=== PATIENT | female | born 1945 | race Caucasian/White ===

== ENCOUNTER 2023-03-04 19:42 | Emergency (ER) | payer MEDICARE, SELFPAY ==
--- NOTE | ~2023-03-04 | CT_ITS ---
EXAMINATION: Head CT, cervical spine CT and facial bone CT without contrast CLINICAL INFORMATION: Pain. Trauma. COMPARISON: None. TECHNIQUE: Axial images through the head, cervical spine and facial bones without IV contrast. Sagittal and coronal reconstructions on the technologist workstation were performed. This CT examination was performed using dose optimization techniques as appropriate, variously including the following: *Automated exposure control *Adjustment of mA and/or kV according to patient size (this includes techniques or standardized protocols for targeted exams where dose is matched to indication/reason for exam; i.e. extremities or head) *Use of iterative reconstruction technique DLP 122 3 mgy/cm FINDINGS: Head CT: There is no evidence of an extra-axial collection. There is no evidence of intra or extra-axial hemorrhage. The ventricles and extra-axial CSF spaces are slightly prominent suggestive of mild generalized atrophy. There is nonspecific periventricular white matter disease. No mass, mass effect or infarct. No skull fracture. There is soft tissue swelling over the right frontal bone. Facial bone CT: No facial bone fracture is seen. Paranasal sinuses are clear. The orbits are normal. Mastoid air cells and middle ears are clear. The temporomandibular joints are normal. Mild soft tissue swelling over the right face and frontal bone.. Cervical spine CT: Bone alignment is normal. No fracture or dislocation. Degenerative spondylosis from C3-C4-C5 to C6-C7. Degenerative disc disease at C5-C6 and C6-C7. Degenerative changes at the C1 dens articulation. Prevertebral soft tissues are normal. Bilateral upper lobe scarring, fibrosis bronchiectasis. Biapical pleural and parenchymal scarring and deeper small nodules, largest measuring 5 x 8 mm in the right upper lobe. Findings could be better assessed with chest CT scan. CT/CT cervical spine wo IV con IMPRESSION: Head CT: No acute findings. Mild generalized atrophy. Soft tissue swelling over the right frontal bone. Facial bone CT: No fracture or dislocation. Mild soft tissue swelling over the right face and frontal bone. Cervical spine CT: No fracture or dislocation. Degenerative changes. Scarring, fibrosis and bronchiectasis in both upper lobes. Small upper lobe pulmonary nodules. Findings could be better assessed with chest CT report
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
[2023-03-04 21:01] VITALS: BP 174/74; PULSE 66; RESP 20; TEMP 36.7; O2SAT 99; BMI 48.0
[2023-03-04 21:49] VITALS: BP 159/63; PULSE 72; RESP 16; TEMP 36.9; O2SAT 98
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
== END 2023-03-04 22:56 | disposition home or self-care (01) ==
PROVIDERS: Emergency Provider Emergency Medicine; PCP Internal Medicine
DX: S00.83XA Contusion of other part of head, initial encounter (principal); Y00.XXXA Assault by blunt object, initial encounter; Y93.9 Activity, unspecified; Y92.019 Unspecified place in single-family (private) house as the place of occurrence of the external cause; Y99.9 Unspecified external cause status; Z72.89 Other problems related to lifestyle; Z63.79 Other stressful life events affecting family and household
CPT/HCPCS: 70450; 70486; 72125; 73130; 99284

== ENCOUNTER 2023-04-13 16:40 | Emergency (ER) | payer MEDICARE, SELFPAY ==
--- NOTE | ~2023-04-13 | CT_ITS ---
EXAMINATION: CT HEAD WITHOUT CONTRAST CLINICAL INFORMATION: headache, right arm tingling/numbness COMPARISON: CT head without contrast 03/04/2023 TECHNIQUE: Contiguous axial imaging was performed from the skull base to vertex without intravenous administration of contrast. This CT examination was performed using dose optimization techniques as appropriate, variously including the following: *Automated exposure control *Adjustment of mA and/or kV according to patient size (this includes techniques or standardized protocols for targeted exams where dose is matched to indication/reason for exam; i.e. extremities or head) *Use of iterative reconstruction technique DLP: 669 mGy-cm FINDINGS: There are bilateral hemispheric subdural collections, both of which are new CT from 03/04/2023. The collection on the right measures up to 1.6 cm in maximal coronal thickness and the collection on the left measures up to 1.1 cm. Subdural collection on the right tracks along the anterior right falx. Both collections may contain blood products of varying ages with mixed isodense and layering hyperdense contents on the right and heterogeneous hyperdense and hypodense components on the left. There is local mass effect on the cerebral hemispheres with sulcal effacement on the right. No significant midline shift or downward herniation. No acute osseous or soft tissue abnormality. The mastoid air cells and visualized portions of the paranasal sinuses are well aerated. There is no evidence of acute territorial infarction. Travis to white matter differentiation is well preserved. No hydrocephalus. No significant volume loss. There is no abnormal attenuation within the brain parenchyma. CT/CT head/brain wo IV con IMPRESSION: Bilateral hemispheric subdural collections, right larger than left, which may contain blood products of varying ages, new compared to CT from 03/04/2023. There is local mass effect without significant midline shift or downward herniation. Above impression was communicated to Dr. Mccormack on 04/13/2023 at 6:09 PM
[2023-04-13 16:50] VITALS: BP 184/50; PULSE 73; RESP 16; TEMP 36.8; O2SAT 98; BMI 23.7
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
[2023-04-13 17:16] LABS: MANUAL DIFF FLAG NO
[2023-04-13 17:28] LABS: Basophils Absolute Auto 0.1 X10*3/uL (0.0-0.2); Basophils Percent Auto 0.8 % (0-2); Eosinophils Absolute Auto 0.2 X10*3/uL (0.0-0.4); Eosinophils Percent Auto 1.7 % (0-4); Hematocrit 42.1 % (37.0-47.0); Hemoglobin 14.1 g/dl (12.0-16.0); Imm Gran Abs Auto 0.03 X10*3/uL (0.00-0.03); Imm Gran Pct Auto 0.3 % (0.0-0.4); Lymphocytes Absolute Auto 1.9 X10*3/uL (1.2-4.9); Lymphocytes Percent Auto 20.2 % (20-40); Mean Corpuscular HGB Conc 33.5 g/dl (31.0-35.0); Mean Corpuscular Volume 86.6 fL (80.0-98.0); Mean Platelet Volume 10.8 fL (9.4-12.3); Monocytes Absolute Auto 0.5 X10*3/uL (0.1-1.2); Monocytes Percent Auto 5.6 % (2-11); Neutrophils Absolute Auto 6.6 x10*3/uL (2.0-8.3); Neutrophils Percent Auto 71.4 % (45-73); Platelet Count 291 X10*3/uL (160-400); Red Blood Count 4.86 X10*6/uL (4.20-5.50); Red Cell Distribution Width 11.7 % (11.0-16.0); White Blood Count 9.2 X10*3/uL (4.8-10.8)
[2023-04-13 17:34] LABS: Alanine Aminotransferase 13 U/L (0-31); Albumin Level 4.5 g/dL (3.5-5.0); Alkaline Phosphatase 83 U/L (39-117); Anion Gap 15 (12-20); Aspartate Amino Transferase 19 U/L (5-31); Bilirubin Direct 0.4 mg/dL (0.0-0.5); Bilirubin Total 0.9 mg/dL (0.0-1.0); Blood Urea Nitrogen 9 mg/dL (9-16); Calcium 9.7 mg/dL (8.4-10.2); Carbon Dioxide 24 mmol/L (22-29); Chloride 107 mmol/L (96-108); Creatinine Clr Calc Pharmacy 61.4; Estimated Glomerular Filt Rate > 60; Glucose Random 90 mg/dL (60-115); Potassium 3.7 mmol/L (3.3-5.1); Sodium 142 mmol/L (135-145); Total Protein 7.7 g/dL (6.5-8.0)
[2023-04-13 17:41] LABS: Troponin-I High Sensitivity < 2.7 ng/L (<3.5-17.0)
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
[2023-04-13 18:20] VITALS: BP 179/69; PULSE 71; RESP 11; O2SAT 99
--- NOTE | 2023-04-13 19:36 | PC.NURSE ---
PT A/OX4, VSS, +PERRLA, STATE 11/05 RAMIREZ, HAS BEEN CONSTANT FOR X35D PER PT. L SIDED FACIAL ASYMMETRY NOTED. AWAITING TRANSFER TO [facility].
[2023-04-13 20:48] VITALS: BP 170/62; PULSE 72; RESP 14; O2SAT 98
[2023-04-13] MEDS: Labetalol HCL 100 MG/20 ML VIAL 10 MG IVPUSH (20:56)
[2023-04-13 20:57] VITALS: BP 169/64; PULSE 66
[2023-04-13 21:02] VITALS: BP 166/62; PULSE 58
[2023-04-13 21:02] LABS: COVID-19 Test Negative (Negative); IDNOW Serial# 08D9AD1C
--- NOTE | 2023-04-13 22:55 | MHC.EDTECH ---
Call to [facility] transfer line @[phone] for a bed assignment. [facility] will call back with a room assignment
[2023-04-13 23:08] VITALS: BP 128/85; PULSE 57; RESP 11; O2SAT 99
--- NOTE | 2023-04-14 00:51 | MHC.EDTECH ---
[facility] patient placement called at [phone] Bed assignment was given Marcus 5 RM [id number] Nurse to Nurse [phone] DR. Tolentino
--- NOTE | 2023-04-14 00:56 | MHC.EDTECH ---
call out to jaren at [phone] to book transport for pt to [facility], estimated eta given was 0030
== END 2023-04-14 00:36 | disposition short-term general hospital (02) ==
PROVIDERS: Physician Assistant Medical; Emergency Provider Emergency Medicine Emergency Medical Services; PCP Internal Medicine
DX: S06.5XAA Traumatic subdural hemorrhage with loss of consciousness status unknown, initial encounter (principal); X58.XXXA Exposure to other specified factors, initial encounter; Y93.9 Activity, unspecified; Y92.9 Unspecified place or not applicable; Y99.9 Unspecified external cause status; R20.0 Anesthesia of skin; R51.9 Headache, unspecified; Z20.822 Contact with and (suspected) exposure to COVID-19
CPT/HCPCS: 36415; 70450; 80048; 80076; 84484; 85025; 87635; 96374; 99285

== ENCOUNTER 2023-05-20 16:14 | Emergency (ER) | payer MEDICARE, SELFPAY ==
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
--- NOTE | ~2023-05-20 | CT_ITS ---
EXAMINATION: CT HEAD WITHOUT CONTRAST CLINICAL INFORMATION: Slurred speech. COMPARISON: 04/13/2023. TECHNIQUE: Contiguous axial imaging was performed from the skull base to vertex without intravenous administration of contrast. This CT examination was performed using dose optimization techniques as appropriate, variously including the following: *Automated exposure control *Adjustment of mA and/or kV according to patient size (this includes techniques or standardized protocols for targeted exams where dose is matched to indication/reason for exam; i.e. extremities or head) *Use of iterative reconstruction technique DLP: 693 mGy-cm FINDINGS: There is a mixed density right-sided complex frontal/parietal subdural collection measuring up to 1.9 cm with mass effect on the gyral and sulcal structures and 2.5 mm shift of the midline to the left. There is a small left-sided predominantly low-density collection measuring up to 6.5 mm with minimal localized mass effect. The lateral, third and fourth ventricles are normally outlined. The basal cisterns are normally outlined as well. There is no acute territorial defect, or parenchymal hemorrhage. Calvarium: Intact. Maxillofacial sinuses and mastoids: Clear as visualized. CT/CT head/brain wo IV con IMPRESSION: Right subdural collection measuring up to 1.9 cm similar in size compared to previous. Diminished size of left-sided subdural collection with 2.5 mm shift of the midline to the left. No parenchymal hemorrhage or territorial defect.
[2023-05-20 16:17] VITALS: BP 156/72; PULSE 68; RESP 20; TEMP 36.8; O2SAT 100; BMI 22.6
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
[2023-05-20 16:51] LABS: MANUAL DIFF FLAG NO
[2023-05-20 16:59] LABS: Basophils Absolute Auto 0.1 X10*3/uL (0.0-0.2); Basophils Percent Auto 0.6 % (0-2); Eosinophils Absolute Auto 0.1 X10*3/uL (0.0-0.4); Eosinophils Percent Auto 1.6 % (0-4); Hematocrit 43.2 % (37.0-47.0); Hemoglobin 14.4 g/dl (12.0-16.0); Imm Gran Abs Auto 0.03 X10*3/uL (0.00-0.03); Imm Gran Pct Auto 0.4 % (0.0-0.4); Lymphocytes Absolute Auto 1.5 X10*3/uL (1.2-4.9); Lymphocytes Percent Auto 18.5 % (20-40); Mean Corpuscular HGB Conc 33.3 g/dl (31.0-35.0); Mean Corpuscular Hemoglobin 29.5 pg (27.0-33.0); Mean Corpuscular Volume 88.5 fL (80.0-98.0); Mean Platelet Volume 10.4 fL (9.4-12.3); Monocytes Absolute Auto 0.5 X10*3/uL (0.1-1.2); Monocytes Percent Auto 6.4 % (2-11); Neutrophils Percent Auto 72.5 % (45-73); Platelet Count 268 X10*3/uL (160-400); Red Blood Count 4.88 X10*6/uL (4.20-5.50); Red Cell Distribution Width 12.1 % (11.0-16.0); White Blood Count 8.3 X10*3/uL (4.8-10.8)
[2023-05-20 17:01] LABS: INTERNATIONAL NORM RATIO 0.9 (0.9-1.1); Prothrombin Time 11.2 SEC (11.1-13.3)
[2023-05-20 17:04] LABS: Partial Thromboplastin Time 33.9 SEC (26.0-36.4)
[2023-05-20 17:09] LABS: Alanine Aminotransferase 15 U/L (0-31); Albumin Level 4.7 g/dL (3.5-5.0); Alkaline Phosphatase 96 U/L (39-117); Anion Gap 14 (12-20); Aspartate Amino Transferase 18 U/L (5-31); Bilirubin Total 0.9 mg/dL (0.0-1.0); Blood Urea Nitrogen 11 mg/dL (9-16); Carbon Dioxide 26 mmol/L (22-29); Chloride 107 mmol/L (96-108); Creatinine Clr Calc Pharmacy 59.7; Estimated Glomerular Filt Rate > 60; Glucose Random 84 mg/dL (60-115); Potassium 3.6 mmol/L (3.3-5.1); Sodium 143 mmol/L (135-145)
[2023-05-20] MEDS: iohexoL 350 MG/ML 75 ML INFUS..BTL 70 ML IV (17:24)
--- NOTE | 2023-05-20 17:49 | PC.NURSE ---
Patient stated that she needed to use the bathroom, patient able to ambulate to bathroom with standby assist. Gait is normal at this time.
[2023-05-20 18:08] LABS: COVID-19 Test Negative (Negative); IDNOW Serial# BCCEAD1C
--- NOTE | 2023-05-20 19:52 | PC.NURSE ---
pt moved into ED bed 16 from 18H. changed into hospital gown and placed on job tracer. assumed care of this patient at 19:30. pt waiting for ambulance transport to [facility].
--- NOTE | 2023-05-20 21:49 | PC.NURSE ---
attempted to call rpt to [facility], was asked to call back in 10-15min as RN was busy in another room.
[2023-05-20 22:35] VITALS: BP 163/68; PULSE 61; RESP 15; TEMP 37.1; O2SAT 100
--- NOTE | 2023-05-20 23:24 | PC.NURSE ---
report given to [facility] SOY
== END 2023-05-21 01:12 | disposition short-term general hospital (02) ==
PROVIDERS: Physician Assistant Medical; Emergency Provider Emergency Medicine; PCP Internal Medicine
DX: I62.02 Nontraumatic subacute subdural hemorrhage (principal); R51.9 Headache, unspecified; R47.81 Slurred speech; Z11.52 Encounter for screening for COVID-19
CPT/HCPCS: 36415; 70450; 70496; 70498; 80053; 85025; 85610; 85730; 87635; 99285; Q9967

== ENCOUNTER 2025-03-08 08:11 | Outpatient (REF) | payer MEDICARE, SELFPAY ==
--- NOTE | ~2025-03-08 | XR_ITS ---
EXAMINATION: XR KNEE 3 VIEWS RIGHT HISTORY: M17.11 - Unilateral primary osteoarthritis, right knee COMPARISON: There are no prior studies available for comparison. FINDINGS: Standing AP views of both knees and additional lateral and sunrise patellar views of the right knee are submitted. Osseous mineralization is normal. There is no fracture or dislocation. There is moderate tricompartmental osteoarthritis with joint space narrowing and osteophyte formation. Moderate osteoarthritis is also seen involving the medial compartment of the left knee. The soft tissues are unremarkable. There is no joint effusion. XR/XR knee RT 3V IMPRESSION: Moderate tricompartmental osteoarthritis. Electronically signed by: Rafita To MD 03/08/2025 01:22 PM EDT
== END 2025-03-08 08:12 | disposition home or self-care (01) ==
LOC: HO.HOSX 08:11
PROVIDERS: Visit Provider Physician Assistant
DX: M17.11 Unilateral primary osteoarthritis, right knee (principal); M25.561 Pain in right knee
CPT/HCPCS: 73562; 99202

== ENCOUNTER 2025-03-08 11:30 | Outpatient (AMB) | payer MEDICARE, SELFPAY ==
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
[2025-03-08 11:49] VITALS: BMI 22.6
== END 2025-03-08 12:26 | disposition home or self-care (01) ==
LOC: HO.HOS 11:31
PROVIDERS: PCP Internal Medicine; Visit Provider Physician Assistant
DX: M17.11 Unilateral primary osteoarthritis, right knee (principal)
CPT/HCPCS: 99203; G2211

== ENCOUNTER → 2025-03-08 11:35 | Outpatient (BNV) | payer MEDICARE, SELFPAY | PROVIDERS: Visit Provider Radiology Diagnostic Radiology | DX: M17.11 Unilateral primary osteoarthritis, right knee (principal) | CPT/HCPCS: 73562 ==